=== PATIENT | female | born 1995 | race Caucasian/White ===

== ENCOUNTER 2018-10-09 14:46 | Inpatient (IN) | payer OTHER, SELFPAY ==
[2018-10-09] MEDS ORDERED: ACT CHARCOAL/SORB 50 GM/240ML ONE (15:14)
[2018-10-09] MEDS ORDERED: ACTIVATED CHARCOAL 25 GM/120 ML TUBE ONE ×2 (15:15→15:17)
[2018-10-09] MEDS ORDERED: PROMETHAZINE 25 MG/ML VIAL ONE (15:15)
[2018-10-09] MEDS ORDERED: NA CHLORIDE 0.9% 1,000 ML ONE ×4 (15:16→17:28)
[2018-10-09 15:23] LABS: Absolute Lymphocytes (CBC) 1.5 K/uL (0.7-4.9); Absolute Monocytes 0.4 K/uL (0.1-1.3); Absolute Neutrophil 4.1 K/uL (1.8-8.0); Basophils % 0.3 % (0-1.3); Eosinophils % 0.2 % (0-4.4); Hematocrit 38.9 % (36.0-45.0); Lymphocytes % 24.9 % (15.3-44.8); MCH 31.8 pg (27.0-35.0); MCV 89.4 fL (80-100); MPV 9.3 fL (7.6-11.3); RBC Red Blood Cell Count 4.35 M/uL (3.86-4.86)
[2018-10-09 15:25] LABS: Protime INR 1.1
[2018-10-09] MEDS ORDERED: MAGNESIUM SULFATE 1 gm IVPB 1 GM/100 ML BAG IV ONE ×2 (15:34→16:35)
[2018-10-09 15:58] LABS: ALT/SGPT 20 U/L (12-78); AST/SGOT 13 U/L (15-37); Albumin 3.8 g/dL (3.4-5.0); Alkaline Phosphatase 59 U/L (45-117); BUN Blood Urea Nitrogen 10 mg/dL (7-18); Bicarbonate 20 mmol/L (21-32); Bilirubin Direct 0.2 mg/dL (0-0.2); Bilirubin Total 0.6 mg/dL (0.2-1.0); Glucose Level 106 mg/dL (74-106); Magnesium 1.8 mg/dL (1.8-2.4); Protein, Total 7.4 g/dL (6.4-8.2); Sodium Level 138 mmol/L (136-145)
[2018-10-09 16:07] LABS: Barbiturates NEGATIVE (NEGATIVE); Benzodiazepines NEGATIVE (NEGATIVE); Cocaine NEGATIVE (NEGATIVE); METHAMPHETAM NEGATIVE (NEGATIVE); Methadone NEGATIVE (NEGATIVE); Opiates NEGATIVE (NEGATIVE); Phencyclidine NEGATIVE (NEGATIVE); THC Cannibis NEGATIVE (NEGATIVE)
[2018-10-09 16:08] LABS: Potassium 2.4 mmol/L (3.5-5.1)
[2018-10-09] MEDS ORDERED: KCL 20 MEQ/100 mL IVPB 20 MEQ/100 ML BAG IV ONE (16:33)
[2018-10-09] MEDS ORDERED: POTASSIUM 25 MEQ EFFERV TAB ONE (16:34)
[2018-10-09] MEDS ORDERED: CEFTRIAXONE/SWI 1gm 1 GM/10 ML SYR ONE (16:35)
--- NOTE | 2018-10-09 17:02 | ER ---
Nurse's Notes [facility] Name: Delaney Rogers Age: 23 yrs Sex: Female : 1995 Arrival Date: 10/09/2018 Time: 14:47 Bed External Waiting Private MD: None, None Diagnosis: Hypokalemia;Suicidal ideations;Suicide attempt Presentation: 10/09 14:54 Presenting complaint: Patient states: Reports taking unknown amount of Seroquel 200 mg aj around 1420 today in an attempt to kill herself. Patient reports that her boyfriend has been "saying mean things" and that she wants to . Patient is 8 weeks . Reports drowsiness, lips pale. Transition of care: patient was not received from another setting of care. Onset of symptoms was October 09, 2018. Risk Assessment: Do you want to hurt yourself or someone else? Patient reports no desire to harm self or others. Initial Sepsis Screen: Does the patient meet any 2 criteria? No. Patient's initial sepsis screen is negative. Does the patient have a suspected source of infection? No. Patient's initial sepsis screen is negative. Care prior to arrival: None. 14:54 Method Of Arrival: Ambulatory 14:54 Acuity: YANCY 1 aj Triage Assessment: 14:56 General: Appears in no apparent distress. comfortable, Behavior is drowsy. Pain: Denies aj pain. Neuro: Level of Consciousness is awake, obeys commands, Oriented to person, place, time, situation, Appropriate for age. Cardiovascular: Rhythm is sinus tachycardia. Respiratory: Airway is patent Respiratory effort is even, unlabored, Respiratory pattern is regular, symmetrical. Derm: Skin is intact, is healthy with good turgor, Skin is pink, warm \\T\\ dry. normal. Historical: - Allergies: 14:56 No Known Allergies; aj - Home Meds: 14:56 None [Active]; aj - PMHx: 14:56 None; aj - PSHx: 14:56 None; aj - Immunization history:: Adult Immunizations unknown. - Social history:: Smoking status: Patient/guardian denies using tobacco. - Ebola Screening: : Patient negative for fever greater than or equal to 101.5 degrees Fahrenheit, and additional compatible Ebola Virus Disease symptoms Patient denies exposure to infectious person Patient denies travel to an Ebola-affected area in the 21 days before illness onset No symptoms or risks identified at this time. Screenin:07 Abuse screen: Denies threats or abuse. Denies injuries from another. Nutritional hj screening: No deficits noted. Tuberculosis screening: No symptoms or risk factors identified. Fall Risk None identified. Assessment: 14:45 General: Appears ill, Behavior is cooperative, drowsy. Pain: Denies pain. Neuro: Level jl7 of Consciousness is awake, alert, obeys commands, Oriented to person, place, time, situation. Cardiovascular: Heart tones S1 S2 present Patient's skin is warm and dry. Respiratory: Airway is patent Respiratory effort is even, unlabored, Respiratory pattern is regular, symmetrical, Breath sounds are clear bilaterally. GI: Abdomen is flat, non-distended, Bowel sounds present X 4 quads. : No signs and/or symptoms were reported regarding the genitourinary system. EENT: No signs and/or symptoms were reported regarding the EENT system. Derm: Skin is dry, Skin is pale, Skin temperature is cool. Musculoskeletal: No signs and/or symptoms reported regarding the musculoskeletal system. 15:00 Reassessment: Delaney at [facility] recommends tox workup, 12 lead ekg, hcg hb level, repeat ASA and ACET level at 4 hours post ingestion. Case #[id number]. 15:09 Reassessment: assisted YARA Forbes with gastric lavage, Mendez CORTES at bedside, milky white iw emesis with pill fragments and whole pills noted in bag. 16:15 Reassessment: bear missygger applied. jl7 17:20 Reassessment: Dr. Navarro at bedside. Reassessment:. Neuro: Level of Consciousness is jl7 lethargic, Oriented to person, place, time, situation. Cardiovascular: Rhythm is sinus tachycardia. Respiratory: Airway is patent Respiratory effort is even, unlabored, shallow, Respiratory pattern is regular, symmetrical. : Earl in place to gravity drainage. 18:04 Reassessment: Pt's step-mother at bedside. jl7 18:54 Reassessment: Pt's father remains at bedside. jl7 19:10 General: Appears in no apparent distress. uncomfortable, Behavior is cooperative, tl2 drowsy. Pain: Denies pain. Neuro: Level of Consciousness is obeys commands, lethargic, Oriented to person, place, situation, Speech is slurred. Cardiovascular: Denies chest pain, Rhythm is sinus tachycardia. Respiratory: Airway is patent Respiratory effort is even, unlabored, Respiratory pattern is regular, symmetrical. GI: No signs and/or symptoms were reported involving the gastrointestinal system. : No signs and/or symptoms were reported regarding the genitourinary system. Derm: Skin is pale. 20:30 Reassessment: Patient appears in no apparent distress at this time. No changes from tl2 previously documented assessment. Awaiting transport to ICU. Overdose: 16:07 Patient took Approximately 77 tablets of 200 mg quetiapine, total 15,400 mg. Overdose jl7 occurred 30 minutes to 1 hour ago. Earl cath inserted, using sterile technique, 16 Fr., by tx, balloon inflated, to gravity drainage, urine specimen collected. NGT: inserted 12 Fr. via left nare. verified placement of air over stomach, verified return of gastric contents, flushed with 50 ml NS Patient tolerated poorly. Vital Signs: 14:56 BP 140 / 44; Pulse 130; Resp 16; Temp 97.9; Pulse Ox 100% ; Weight 81.65 kg; Height 5 hb ft. 10 in. (177.80 cm); 15:15 BP 108 / 64; Pulse 133; Resp 14 S; Pulse Ox 97% on R/A; jl7 15:30 BP 114 / 52; Pulse 122; Resp 15 S; Pulse Ox 98% on R/A; jl7 15:45 BP 108 / 49; Pulse 115; Resp 13 S; Temp 93.7(C); Pulse Ox 98% on R/A; jl7 16:01 BP 109 / 49; Pulse 114; Resp 13 S; Temp 95.1(C); Pulse Ox 98% on R/A; jl7 16:15 BP 107 / 58; Pulse 127; Resp 11 S; Temp 94.5(R); Pulse Ox 96% on R/A; jl7 16:45 BP 99 / 46; Pulse 141; Resp 20 S; Temp 95.0(C); Pulse Ox 96% on R/A; jl7 17:00 BP 94 / 48; Pulse 119; Resp 12; Temp 95.2(C); Pulse Ox 96% on R/A; jl7 17:45 BP 108 / 51; Pulse 116; Resp 14 S; Temp 96.1(C); Pulse Ox 97% on R/A; jl7 18:15 BP 102 / 49; Pulse 118; Resp 11 S; Temp 97(C); Pulse Ox 98% on R/A; jl7 18:45 BP 105 / 55; Pulse 125; Resp 16 S; Temp 98.2(C); Pulse Ox 97% on R/A; jl7 19:31 BP 95 / 50; Pulse 110; Resp 17; Temp 99.1(C); Pulse Ox 97% ; tl2 20:10 BP 100 / 49; Pulse 115; Resp 15; Pulse Ox 99% on R/A; tl2 14:56 Body Mass Index 25.83 (81.65 kg, 177.80 cm) hb [place] Coma Score: 14:45 Eye Response: spontaneous(4). Verbal Response: oriented(5). Motor Response: obeys jl7 commands(6). Total: 15. 15:15 Eye Response: to voice(3). Verbal Response: oriented(5). Motor Response: obeys jl7 commands(6). Total: 14. 15:45 Eye Response: to pain(2). Verbal Response: confused(4). Motor Response: localizes jl7 pain(5). Total: 11. 16:15 Eye Response: to pain(2). Verbal Response: confused(4). Motor Response: localizes jl7 pain(5). Total: 11. 16:45 Eye Response: to pain(2). Verbal Response: confused(4). Motor Response: localizes jl7 pain(5). Total: 11. 17:15 Eye Response: to pain(2). Verbal Response: confused(4). Motor Response: localizes jl7 pain(5). Total: 11. 17:45 Eye Response: to pain(2). Verbal Response: confused(4). Motor Response: localizes jl7 pain(5). Total: 11. 18:15 Eye Response: to pain(2). Verbal Response: confused(4). Motor Response: localizes jl7 pain(5). Total: 11. 18:45 Eye Response: to pain(2). Verbal Response: confused(4). Motor Response: localizes jl7 pain(5). Total: 11. 19:31 Eye Response: to voice(3). Verbal Response: inappropriate words(3). Motor Response: tl2 localizes pain(5). Total: 11. 20:10 Eye Response: to voice(3). Verbal Response: inappropriate words(3). Motor Response: tl2 localizes pain(5). Total: 11. ED Course: 14:47 Patient arrived in ED. mr 14:48 None, None is Private Physician. mr 14:56 Triage completed. aj 14:56 Arm band placed on left wrist. Patient placed in an exam room. aj 14:58 Patient has correct armband on for positive identification. Placed in gown. Bed in low hj position. Call light in reach. Side rails up X2. Seizure precautions initiated. 14:58 Initial lab(s) drawn, by ED staff, sent to lab. Inserted saline lock: 18 gauge in right hj antecubital area, using aseptic technique. Blood collected. 14:58 Inserted saline lock: 20 gauge in left antecubital area, using aseptic technique. hj 15:00 Safety checks: Items removed: yes. Door open/sign placed on door: yes. Family/friend ap present: yes. Sitter present: Yes. 15:00 NGT: inserted 12 Fr. via left nare. other YARA Forbes\\E\\ verified placement of air over jl7 stomach, flushed with 50 ml tap water Patient tolerated well. 15:05 Mendez Richmond PA is PHCP. jr8 15:05 Zoran Molina MD is Attending Physician. jr8 15:15 Safety checks: Items removed: yes. Door open/sign placed on door: yes. Family/friend ap present: no. Sitter present: Yes. 15:30 Safety checks: Items removed: yes. Door open/sign placed on door: yes. Family/friend ap present: no. Sitter present: Yes. 15:44 Earl cath inserted, using sterile technique, 16 Fr., by ED staff, balloon inflated, to hj gravity drainage, other YARA Forbes returned Patient tolerated well. 15:45 Safety checks: Items removed: yes. Door open/sign placed on door: yes. Family/friend ap present: no. Sitter present: Yes. 16:00 Andrei Pérez RN is Primary Nurse. jl7 16:00 Safety checks: Items removed: yes. Door open/sign placed on door: yes. Family/friend ap present: no. Sitter present: Yes. 16:15 Safety checks: Items removed: yes. Door open/sign placed on door: yes. Family/friend ap present: no. Sitter present: Yes. 16:30 Safety checks: Items removed: yes. Door open/sign placed on door: yes. Family/friend ap present: no. Sitter present: Yes. 16:45 Safety checks: Items removed: yes. Door open/sign placed on door: yes. Family/friend ap present: no. Sitter present: Yes. 17:00 Safety checks: Items removed: yes. Door open/sign placed on door: yes. Family/friend ap present: no. Sitter present: Yes. 17:01 Kati Navarro MD is Hospitalizing Provider. jr8 17:15 Safety checks: Items removed: yes. Door open/sign placed on door: yes. Family/friend ap present: no. Sitter present: Yes. 17:30 Ultrasound completed. Patient tolerated well. Note: mendez cortes in room during exam. sg3 17:30 Safety checks: Items removed: yes. Door open/sign placed on door: yes. Family/friend ap present: no. Sitter present: Yes. 17:45 Safety checks: Items removed: yes. Door open/sign placed on door: yes. Family/friend ap present: no. Sitter present: Yes. 18:00 Safety checks: Items removed: yes. Door open/sign placed on door: yes. Family/friend ap present: yes. Family/friends encouraged to stay with patient. Sitter present: Yes. 18:15 Safety checks: Items removed: yes. Door open/sign placed on door: yes. Family/friend ap present: yes. Family/friends encouraged to stay with patient. Sitter present: Yes. 18:30 Safety checks: Items removed: yes. Door open/sign placed on door: yes. Family/friend ap present: yes. Family/friends encouraged to stay with patient. Sitter present: Yes. 18:45 Safety checks: Items removed: yes. Door open/sign placed on door: yes. Family/friend ap present: yes. Family/friends encouraged to stay with patient. Sitter present: Yes. 19:00 Safety checks: Items removed: yes. Door open/sign placed on door: yes. Family/friend ap present: yes. Sitter present: Yes. 19:09 Primary Nurse role handed off by Andrei Pérez RN [facility] 19:11 Safety checks: Items removed: yes. Door open/sign placed on door: yes. Family/friend cb2 present: yes. Sitter present: Yes. 19:15 Safety checks: Items removed: yes. Safety checks: Door open/sign placed on door: yes. cb2 Family/friend present: yes. Sitter present: Yes. 19:30 Safety checks: Items removed: yes. Door open/sign placed on door: yes. Family/friend cb2 present: yes. Sitter present: Yes. 19:45 Safety checks: Items removed: yes. Door open/sign placed on door: yes. Family/friend cb2 present: yes. Sitter present: Yes. 20:00 Safety checks: Items removed: yes. Door open/sign placed on door: yes. Family/friend cb2 present: yes. Family/friends encouraged to stay with patient. Sitter present: Yes. 20:15 Safety checks: Items removed: yes. Door open/sign placed on door: yes. Family/friend cb2 present: yes. Family/friends encouraged to stay with patient. Sitter present: Yes. 21:30 No provider procedures requiring assistance completed. Patient admitted, IV remains in tl2 place. Administered Medications: 15:08 Drug: NS 0.9% 1000 ml Route: IV; Rate: 1000 ml; Site: left antecubital; 16:15 Follow up: IV Status: Completed infusion [facility] 15:17 Drug: Charcoal Suspension 80 grams Route: PO; 16:00 Follow up: Response: No adverse reaction [facility] 15:23 Drug: NS 0.9% 1000 ml Route: IV; Rate: 125 ml/hr; Site: left antecubital; hj 16:45 Follow up: Rate change bolus jl7 15:30 Drug: Magnesium Sulfate 1 grams Route: IVPB; Infused Over: 1 hrs; Site: right antecubital; 16:30 Follow up: Response: No adverse reaction; IV Status: Completed infusion [facility] 16:35 Drug: Potassium Chloride 20 mEq Route: IV; Rate: calculated rate; Site: right [facility] antecubital; 17:25 Drug: NS 0.9% 1000 ml Route: IV; Rate: 200 ml/hr; Site: right antecubital; jl7 Outcome: 17:02 Decision to Hospitalize by Provider. jr8 21:10 Patient left the ED. tl2 21:30 Admitted to ICU accompanied by nurse, family with patient, via stretcher, room 1, with tl2 chart, Report called to YARA Vides 21:30 Condition: stable 21:30 Instructed on the need for admit. Signatures: Nae Howell, RN YARA lerma AhnKerri, April, RN RN iw Mendez Richmond PA PA jr8 Kris Chavez, RN Iraida Richey Heather, Bridget Fountain RN, RN RN tl2 Beto, YARA Forbes RN jl7 Rufus Andrade Sarah 3 Corrections: (The following items were deleted from the chart) 15:12 15:09 Reassessment: assisted YARA Barney with gastric lavage, Mendez CORTES at bedside, milky iw white emesis with pill fragments and whole pills noted in bag iw 16:07 15:00 NGT: inserted 16 Fr. via left nare. other YARA Forbes\\E\\ verified placement of air jl7 over stomach, flushed with 50 ml tap water Patient tolerated well. hj 16:23 15:45 BP 108 / 49; Pulse 115bpm; Resp 13bpm; Spontaneous; Pulse Ox 98% RA; jl7 jl7 16:23 16:01 BP 109 / 49; Pulse 114bpm; Resp 13bpm; Spontaneous; Pulse Ox 98% RA; jl7 jl7 17:25 17:24 Rate change bolus jl7 jl7
--- NOTE | 2018-10-09 17:03 | EDPHYS ---
Physician Documentation [facility] Name: Delaney Rogers Age: 23 yrs Sex: Female : 1995 Arrival Date: 10/09/2018 Time: 14:47 Bed External Waiting Private MD: None, None ED Physician Zoran Molina HPI: 10/09 16:32 This 23 yrs old Female presents to ER via Ambulatory with complaints of jr8 Overdose, Suicidal Ideation, 8 Wks . 16:32 The patient presents to the emergency department after a known overdose, that was jr8 intentional. Context: Method: the patient has a confirmed or suspected ingestion, Seroquel. Associated signs and symptoms: Pertinent positives: sleepiness . Severity of symptoms: At their worst the symptoms were moderate in the emergency department the symptoms are unchanged. The patient has not experienced similar symptoms in the past. The patient has not recently seen a physician. Patient stated that her father has been saying mean things to her. Stated that she cannot take it anymore. 8 weeks . Took fathers Seroquel. Dosage is 200mg. Took approximately 77 pills. Mother of patient stated that she moved into there house recently to help her. Stated that she has been angry and upset because they have been instating rules and does not want to follow them . Historical: - Allergies: 14:56 No Known Allergies; aj - Home Meds: 14:56 None [Active]; aj - PMHx: 14:56 None; aj - PSHx: 14:56 None; aj - Immunization history:: Adult Immunizations unknown. - Social history:: Smoking status: Patient/guardian denies using tobacco. - Ebola Screening: : Patient negative for fever greater than or equal to 101.5 degrees Fahrenheit, and additional compatible Ebola Virus Disease symptoms Patient denies exposure to infectious person Patient denies travel to an Ebola-affected area in the 21 days before illness onset No symptoms or risks identified at this time. ROS: 16:32 Eyes: Negative for injury, pain, redness, and discharge, ENT: Negative for injury, jr8 pain, and discharge, Neck: Negative for injury, pain, and swelling, Cardiovascular: Negative for chest pain, palpitations, and edema, Respiratory: Negative for shortness of breath, cough, wheezing, and pleuritic chest pain, Abdomen/GI: Negative for abdominal pain, nausea, vomiting, diarrhea, and constipation, Back: Negative for injury and pain, MS/Extremity: Negative for injury and deformity, Skin: Negative for injury, rash, and discoloration, Neuro: Negative for headache, weakness, numbness, tingling, and seizure. 16:32 Psych: Positive for anxiety, depression, suicide gesture, suicidal ideation. Exam: 16:32 Eyes: Pupils equal round and reactive to light, extra-ocular motions intact. Lids and jr8 lashes normal. Conjunctiva and sclera are non-icteric and not injected. Cornea within normal limits. Periorbital areas with no swelling, redness, or edema. ENT: Nares patent. No nasal discharge, no septal abnormalities noted. Tympanic membranes are normal and external auditory canals are clear. Oropharynx with no redness, swelling, or masses, exudates, or evidence of obstruction, uvula midline. Mucous membranes moist. Neck: Trachea midline, no thyromegaly or masses palpated, and no cervical lymphadenopathy. Supple, full range of motion without nuchal rigidity, or vertebral point tenderness. No Meningismus. Respiratory: Lungs have equal breath sounds bilaterally, clear to auscultation and percussion. No rales, rhonchi or wheezes noted. No increased work of breathing, no retractions or nasal flaring. Abdomen/GI: Soft, non-tender, with normal bowel sounds. No distension or tympany. No guarding or rebound. No evidence of tenderness throughout. Back: No spinal tenderness. No costovertebral tenderness. Full range of motion. Skin: Warm, dry with normal turgor. Normal color with no rashes, no lesions, and no evidence of cellulitis. MS/ Extremity: Pulses equal, no cyanosis. Neurovascular intact. Full, normal range of motion. Neuro: Awake and alert, GCS 15, oriented to person, place, time, and situation. Cranial nerves II-XII grossly intact. Motor strength 5/5 in all extremities. Sensory grossly intact. Cerebellar exam normal. Normal gait. 16:32 Cardiovascular: Rate: tachycardic, Rhythm: regular, Pulses: Pulses are 2+ in right radial artery and left radial artery. Heart sounds: normal, normal S1and S2, no S3 or S4, no murmur, no rub, no gallop, Edema: is not appreciated. 16:32 Psych: Behavior/mood is cooperative, suicidal, Affect is calm, Oriented to person, place, time, Patient having thoughts of suicide. Plan for suicide is see hpi Judgement / Insight is impaired. Memory is normal. Delusions/hallucinations are not present. Vital Signs: 14:56 BP 140 / 44; Pulse 130; Resp 16; Temp 97.9; Pulse Ox 100% ; Weight 81.65 kg; Height 5 hb ft. 10 in. (177.80 cm); 15:15 BP 108 / 64; Pulse 133; Resp 14 S; Pulse Ox 97% on R/A; jl7 15:30 BP 114 / 52; Pulse 122; Resp 15 S; Pulse Ox 98% on R/A; jl7 15:45 BP 108 / 49; Pulse 115; Resp 13 S; Temp 93.7(C); Pulse Ox 98% on R/A; jl7 16:01 BP 109 / 49; Pulse 114; Resp 13 S; Temp 95.1(C); Pulse Ox 98% on R/A; jl7 16:15 BP 107 / 58; Pulse 127; Resp 11 S; Temp 94.5(R); Pulse Ox 96% on R/A; jl7 16:45 BP 99 / 46; Pulse 141; Resp 20 S; Temp 95.0(C); Pulse Ox 96% on R/A; jl7 17:00 BP 94 / 48; Pulse 119; Resp 12; Temp 95.2(C); Pulse Ox 96% on R/A; jl7 17:45 BP 108 / 51; Pulse 116; Resp 14 S; Temp 96.1(C); Pulse Ox 97% on R/A; jl7 18:15 BP 102 / 49; Pulse 118; Resp 11 S; Temp 97(C); Pulse Ox 98% on R/A; jl7 18:45 BP 105 / 55; Pulse 125; Resp 16 S; Temp 98.2(C); Pulse Ox 97% on R/A; jl7 19:31 BP 95 / 50; Pulse 110; Resp 17; Temp 99.1(C); Pulse Ox 97% ; tl2 20:10 BP 100 / 49; Pulse 115; Resp 15; Pulse Ox 99% on R/A; tl2 14:56 Body Mass Index 25.83 (81.65 kg, 177.80 cm) hb Shaquille Coma Score: 14:45 Eye Response: spontaneous(4). Verbal Response: oriented(5). Motor Response: obeys jl7 commands(6). Total: 15. 15:15 Eye Response: to voice(3). Verbal Response: oriented(5). Motor Response: obeys jl7 commands(6). Total: 14. 15:45 Eye Response: to pain(2). Verbal Response: confused(4). Motor Response: localizes jl7 pain(5). Total: 11. 16:15 Eye Response: to pain(2). Verbal Response: confused(4). Motor Response: localizes jl7 pain(5). Total: 11. 16:45 Eye Response: to pain(2). Verbal Response: confused(4). Motor Response: localizes jl7 pain(5). Total: 11. 17:15 Eye Response: to pain(2). Verbal Response: confused(4). Motor Response: localizes jl7 pain(5). Total: 11. 17:45 Eye Response: to pain(2). Verbal Response: confused(4). Motor Response: localizes jl7 pain(5). Total: 11. 18:15 Eye Response: to pain(2). Verbal Response: confused(4). Motor Response: localizes jl7 pain(5). Total: 11. 18:45 Eye Response: to pain(2). Verbal Response: confused(4). Motor Response: localizes jl7 pain(5). Total: 11. 19:31 Eye Response: to voice(3). Verbal Response: inappropriate words(3). Motor Response: tl2 localizes pain(5). Total: 11. 20:10 Eye Response: to voice(3). Verbal Response: inappropriate words(3). Motor Response: tl2 localizes pain(5). Total: 11. MDM: 15:05 Patient medically screened. [facility] 16:54 Data reviewed: vital signs, nurses notes, lab test result(s), EKG. Data interpreted: jr8 Pulse oximetry: on room air is 96 %. Interpretation: normal. Counseling: I had a detailed discussion with the patient and/or guardian regarding: the historical points, exam findings, and any diagnostic results supporting the discharge/admit diagnosis, lab results, the need for further work-up and treatment in the hospital. Physician consultation: Kati Navarro MD was called at 17:01, was contacted at 17:01, regarding admission, to the ICU, consult, patient's condition, and will see patient in ED. ED course: Consulted Dr. Allen about the 8 week . Nothing at this point in time needs to be done from an obstetrics point of view other then follow up with [employer] learning support teacher if patient does not miscarry . 18:49 ED course: pt seen and examined, somnolent but awakens and answers questions, VS gs stabilizing continue fluids and monitor for sz and arrythmias in ICU. 10/09 14:59 Order name: Acetaminophen 10/09 14:59 Order name: Basic Metabolic Panel; Complete Time: 16:09 10/09 14:59 Order name: CBC with Diff; Complete Time: 15:42 10/09 14:59 Order name: ETOH Level; Complete Time: 15:42 10/09 14:59 Order name: Hepatic Function; Complete Time: 16: 10/09 14:59 Order name: PT-INR; Complete Time: 15:42 10/09 14:59 Order name: Ptt, Activated; Complete Time: 15:42 10/09 14:59 Order name: Salicylate; Complete Time: 15:42 10/09 14:59 Order name: Urine Drug Screen; Complete Time: 16: 10/09 14:59 Order name: Magnesium; Complete Time: 16: 10/09 14:59 Order name: Acetaminophen Level; Complete Time: 16:09 [facility] 10/09 15:56 Order name: Urine Dipstick--Ancillary (enter results) 10/09 15:56 Order name: Urine --Ancillary (enter results) 10/09 17:21 Order name: US Transvaginal Ob [facility] 10/09 14:59 Order name: EKG; Complete Time: 15:00 10/09 14:59 Order name: EKG - Nurse/Tech; Complete Time: 15:17 10/09 14:59 Order name: IV Saline Lock; Complete Time: 15:17 10/09 14:59 Order name: Labs collected and sent; Complete Time: 15:18 10/09 15:07 Order name: Gastric lavage; Complete Time: 15: [facility] 10/09 19:56 Order name: US EDTX Administered Medications: 15:08 Drug: NS 0.9% 1000 ml Route: IV; Rate: 1000 ml; Site: left antecubital; 16:15 Follow up: IV Status: Completed infusion jl7 15:17 Drug: Charcoal Suspension 80 grams Route: PO; 16:00 Follow up: Response: No adverse reaction jl7 15:23 Drug: NS 0.9% 1000 ml Route: IV; Rate: 125 ml/hr; Site: left antecubital; hj 16:45 Follow up: Rate change bolus jl7 15:30 Drug: Magnesium Sulfate 1 grams Route: IVPB; Infused Over: 1 hrs; Site: right hj antecubital; 16:30 Follow up: Response: No adverse reaction; IV Status: Completed infusion jl7 16:35 Drug: Potassium Chloride 20 mEq Route: IV; Rate: calculated rate; Site: right jl7 antecubital; 17:25 Drug: NS 0.9% 1000 ml Route: IV; Rate: 200 ml/hr; Site: right antecubital; 7 Disposition: 10/09/18 17:02 Hospitalization ordered by Kati Navarro for Inpatient Admission. Preliminary diagnosis are Hypokalemia, Suicidal ideations, Suicide attempt. - Bed requested for Intensive Care Unit. - Status is Inpatient Admission. tl2 - Condition is Fair. - Problem is new. - Symptoms have improved. UTI on Admission? No Addendum: 10/17/2018 13:01 Co-signature as Attending Physician, Zoran Molina MD. g s Signatures: Dispatcher [employer] EDTX Nae Howell RN RN aj Solis, Maria ms Mendez [place], NEDA PA jr8 Kris Chavez RN RN hj Knox, Taylor, RN RN tl2 Andrei Pérez RN RN jl7 Zoran Molina MD MD Corrections: (The following items were deleted from the chart) 10/09 19:14 17:02 Hospitalization Ordered by Kati Navarro MD for Inpatient Admission. Preliminary ms diagnosis is Hypokalemia; Suicidal ideations; Suicide attempt. Bed requested for Intensive Care Unit. Status is Inpatient Admission. Condition is Fair. Problem is new. Symptoms have improved. UTI on Admission? No. jr8 21:10 19:14 10/09/2018 17:02 Hospitalization Ordered by Kati Navarro MD for Inpatient tl2 Admission. Preliminary diagnosis is Hypokalemia; Suicidal ideations; Suicide attempt. Bed requested for Intensive Care Unit. Status is Inpatient Admission. Condition is Fair. Problem is new. Symptoms have improved. UTI on Admission? No. ms
--- NOTE | 2018-10-09 19:55 | RAD REPORT ---
EXAM DESCRIPTION: US - OB Limited - 10/09/2018 6:28 pm CLINICAL HISTORY: , unknown abdominal injury COMPARISON: None. TECHNIQUE: Transabdominal sonography performed. FINDINGS: Single intrauterine gestation is identifiable. Normal-appearing gestational sac is seen. S ac measurements and crown-rump length corresponds to a 13 week 4 day age. Calculated MONTY is 9. Heart rate is 151 BPM. No hematoma or mass within the uterine cavity. Neither ovary was identifiable. No adnexal mass. No free fluid in the cul de sac. IMPRESSION: Single 13 week 4 day IUP with normal heart rate.
[2018-10-09 21:25] LABS: Urine Blood NEGATIVE (NEG); Urine Glucose NEGATIVE (NEG); Urine Protein 2+ (NEG); Urine Specific Gravity >1.030 (1.005-1.030)
--- NOTE | 2018-10-09 23:24 | P.HP ---
Patient History Date of Service: 10/10/18 Reason for admission: Suicide attempt History of Present Illness: This is a 23-year-old female with no past medical history admitted for suicide attempt. Per patient, she was upset that her father had been putting her down all night and all day, calling her" worthless" "useless" and just making her feel well in general. She took her father's Seroquel pills, about 77 of them, per patient. She is also approximately 8 weeks , and she does know she is . In the ER, her stomach responded found to have pill fragments. She was given 3 L of IV fluids and other supportive care. She took a at the time of my exam, patient was very sleepy, unarousable and unable to give me a history. Allergies No Known Drug Allergies Allergy (Verified 10/09/18 21:36) Unknown Home Medications: NK [No Home Meds] 10/09/18 - Past Medical/Surgical History Has patient received pneumonia vaccine in the past: No Diabetic: No -: 2014 - Family History Mother Notes: denies any medical history Father -: Heart disease, Hypertension, Diabetes - Social History Smoking Status: Former smoker Alcohol use: Yes CD- Drugs: No Caffeine use: Yes Place of Residence: Home Review of Systems is unable to be obtained Physical Examination - Vital Signs Temperature: 99.1 F Blood Pressure: 94/44 Pulse: 103 Respirations: 17 Pulse Ox (%): 100 - Physical Exam General: Confused, Unresponsive Neck: JVD not distended Cardiovascular: Normal S1 S2, Irregular heart rate/rhythm Gastrointestinal: Normal bowel sounds Musculoskeletal: No clubbing, No swelling Integumentary: No rashes, No breakdown - Studies Laboratory Data (last 24 hrs) 10/09/18 15:09: PT 13.0 H, INR 1.10, APTT 26.9 10/09/18 15:09: WBC 6.0, Hgb 13.8, Hct 38.9, Plt Count 163 10/09/18 15:09: Sodium 138, Potassium 2.4 L*, BUN 10, Creatinine 0.60, Glucose 106, Magnesium 1.8, Total Bilirubin 0.6, AST 13 L, ALT 20, Alkaline Phosphatase 59 Assessment and Plan - Plan Suicide attempt ICU, 1-on-1 monitoring Symptomatic care Will need MHMR eval once medically stable for likely inpatient psych eval Repeat EKG tomorrow as initial EKG with QT prolongation. She was already given 1mg Mag in the ER. If QTC continues to be prolonged tomorrow, will give another Mag. Currently Transvaginal ultrasound performed No need for OB consult at this time unless patient with vaginal bleeding, abdominal pain DVT prophylaxis: Lovenox Diet: NPO disposition: Admit to ICU with 1 on 1 monitoring. Symptomatic treatment. I do not think she will be a safe discharge home after medically being stable. She may need inpatient psych eval. - Advance Directives Does patient have a Living Will: No Does patient have a Durable POA for Healthcare: No Physician Review: Patient Assessed, Agree with Above Assessment and Plan Time Spent Managing Pts Care (In Minutes): 55
[2018-10-09] MEDS ORDERED: KCL 20 MEQ/100 mL IVPB 20 MEQ/100 ML BAG IV SCH (23:45)
[2018-10-10] MEDS: KCL 20 MEQ/100 mL IVPB 20 MEQ/100 ML BAG IV SCH ×2 (00:25→02:04)
[2018-10-10] MEDS ORDERED: NA CHLORIDE 0.9% 250 ML ONE (00:31)
[2018-10-10 05:32] LABS: Absolute Monocytes 0.6 K/uL (0.1-1.3); Absolute Neutrophil 8.6 K/uL (1.8-8.0); Basophils % 0.1 % (0-1.3); Eosinophils % 0.1 % (0-4.4); Hematocrit 34.8 % (36.0-45.0); Lymphocytes % 10.2 % (15.3-44.8); MCH 32.1 pg (27.0-35.0); MCV 88.8 fL (80-100); MPV 9.2 fL (7.6-11.3); Monocytes % 5.9 % (3.3-12.3); RBC Red Blood Cell Count 3.91 M/uL (3.86-4.86)
[2018-10-10 05:57] LABS: ALT/SGPT 17 U/L (12-78); AST/SGOT 11 U/L (15-37); Alkaline Phosphatase 55 U/L (45-117); BUN Blood Urea Nitrogen 4 mg/dL (7-18); Bicarbonate 21 mmol/L (21-32); Bilirubin Total 0.7 mg/dL (0.2-1.0); Glucose Level 101 mg/dL (74-106); Magnesium 1.9 mg/dL (1.8-2.4); Potassium 3.6 mmol/L (3.5-5.1); Protein, Total 6.2 g/dL (6.4-8.2); Sodium Level 139 mmol/L (136-145)
[2018-10-10] MEDS ORDERED: NA CHLORIDE 0.9% 100 ML ONE (06:20)
[2018-10-10 06:25] LABS: Phosphorus 2.8 mg/dL (2.5-4.9)
[2018-10-10] MEDS ORDERED: KCL 20 MEQ/100 mL IVPB 20 MEQ/100 ML BAG IV SCH (07:00)
--- NOTE | 2018-10-10 07:03 | EKG ---
Test Date: 2018-10-09 Test Time: 14:57:49 Installation Tech: ROSAS MEASUREMENT RESULTS: Intervals: Rate: 126 NC: 122 QRSD: 72 QT: 420 QTc: 608 [place]: P: 78 NC: 122 QRS: 80 T: 66 INTERPRETIVE STATEMENTS: Sinus tachycardia Nonspecific ST and T wave abnormality Abnormal ECG No previous ECG available for comparison Electronically Signed On 10-10-18 07:02:35 [employer]UT[employer] CONSULTANT by Ang Ruiz
--- NOTE | 2018-10-10 14:03 | EKG ---
Test Date: 2018-10-10 Test Time: 09:37:20 Directory Clerk: SURESH MEASUREMENT RESULTS: Intervals: Rate: 92 NE: 164 QRSD: 72 QT: 372 QTc: 460 [place]: P: 53 NE: 164 QRS: 61 T: 34 INTERPRETIVE STATEMENTS: Normal sinus rhythm Normal ECG Compared to ECG 10/09/2018 14:57:49 Sinus tachycardia no longer present ST (T wave) deviation no longer present Electronically Signed On 10-10-18 14:01:29 ENVIRONMENTAL COMPLIANCE INSPECTOR by Kyle Adam
--- NOTE | 2018-10-10 16:56 | P.PN ---
Subjective Date of Service: 10/10/18 Chief Complaint: Suicide attempt Patient seen and examined at bedside. Mother at bedside. Case has with nursing staff. Patient awake and alert, oriented x3. Back to baseline. Denies any current complaints. Review of Systems As noted Physical Examination - Vital Signs Temperature: 99.1 F Blood Pressure: 94/44 Pulse: 103 Respirations: 17 Pulse Ox (%): 100 - Physical Exam General: Alert, In no apparent distress, Oriented x3 HEENT: Atraumatic, PERRLA, EOMI Neck: Supple, JVD not distended Respiratory: Clear to auscultation bilaterally, Normal air movement Cardiovascular: Regular rate/rhythm, Normal S1 S2 Gastrointestinal: Normal bowel sounds, No tenderness Musculoskeletal: No tenderness Integumentary: No rashes Neurological: Normal speech, Normal tone, Normal affect Assessment And Plan - Plan Suicide attempt ICU, 1-on-1 monitoring Symptomatic care MR eval done today. Repeat EKG with QTC less than 500. Currently , 14 weeks Transvaginal ultrasound performed No need for OB consult at this time unless patient with vaginal bleeding, abdominal pain DVT prophylaxis: Lovenox Diet: Regular disposition: Monitor and ICU with 1 on 1 monitoring. Medically cleared for discharge, pending transfer to inpatient psych facility. Physician Review: Patient Assessed, Agree with Above Assessment and Plan
[2018-10-10 17:08] VITALS: BMI 25.1
[2018-10-11 00:20] VITALS: O2SAT 99
[2018-10-11 05:15] LABS: Absolute Lymphocytes (CBC) 1.3 K/uL (0.7-4.9); Absolute Monocytes 0.5 K/uL (0.1-1.3); Absolute Neutrophil 11.1 K/uL (1.8-8.0); Basophils % 0.3 % (0-1.3); Eosinophils % 0.2 % (0-4.4); Hematocrit 39.5 % (36.0-45.0); Lymphocytes % 9.7 % (15.3-44.8); MCH 31.6 pg (27.0-35.0); MCV 89.3 fL (80-100); MPV 9.5 fL (7.6-11.3); Monocytes % 4.2 % (3.3-12.3); RBC Red Blood Cell Count 4.42 M/uL (3.86-4.86)
[2018-10-11 05:34] VITALS: TEMP 98.7
[2018-10-11 05:43] LABS: ALT/SGPT 18 U/L (12-78); AST/SGOT 13 U/L (15-37); Albumin 3.8 g/dL (3.4-5.0); Alkaline Phosphatase 68 U/L (45-117); BUN Blood Urea Nitrogen 5 mg/dL (7-18); Bicarbonate 23 mmol/L (21-32); Bilirubin Total 0.6 mg/dL (0.2-1.0); Glucose Level 99 mg/dL (74-106); Potassium 3.3 mmol/L (3.5-5.1); Protein, Total 7.8 g/dL (6.4-8.2); Sodium Level 138 mmol/L (136-145)
[2018-10-11 05:45] LABS: Platelet Estimate ADEQ; Platelets, Giant NOTED; Urine White Blood Cell Casts OK
[2018-10-11 05:46] LABS: Blood Morphology Comment NOT SEEN (NOT SEEN)
[2018-10-11] MEDS ORDERED: POTASSIUM CL SA 10 MEQ TAB PO ONE ×2 (05:49→13:39)
[2018-10-11 11:36] LABS: Urine Appearance CLOUDY; Urine Bilirubin NEGATIVE (NEG); Urine Blood NEGATIVE (NEG); Urine Color YELLOW; Urine Glucose NEGATIVE (NEG); Urine Protein NEGATIVE (NEG); Urine Urobilinogen 0.2 mg/dL (0.2-1.0); Urine pH 6.5 (5.0-7.0)
[2018-10-11 11:53] LABS: Urine Bacteria 20-50 /HPF (<20); Urine Culture Reflex Order REFLEXED; Urine RBC <5 /HPF (NONE SEEN)
[2018-10-11] MEDS ORDERED: AMOXICILLIN TRIHYDR 250 MG CAP PO SCH (14:00)
[2018-10-11 18:44] VITALS: BP 113/64
--- NOTE | 2018-10-11 20:04 | DS ---
Date of Discharge: 10/11/2018 Discharge Diagnoses: 1. Suicide attempt. 2. Current , 14 weeks. 3. Hypokalemia. 4. Acute cystitis without hematuria. Hospital Course: The patient is a 23-year-old female, who was admitted to the hospital for suicide attempt. The patient had taken her father's Seroquel about 77 pills. However, the patient was brought in immediately afterwards. Lavage was done and fragments of the pills were found. The patient did have a prolonged QTc, however, the QTc did normalize on repeat EKG. The patient was continued symptomatic treatment. The patient did have a transvaginal ultrasound done, which showed a single gestation with normal heartbeat. The patient was found to have UTI and was continued on amoxicillin which she was taking prior to hospitalization. The patient otherwise did well. Her potassium level was normalized. Her UDS did not show any toxins in her urine. The patient was seen by [facility], who did not recommend inpatient admission ; however, given the patient's condition, status, and suicide attempt , the patient was referred to a TPC and was accepted. The patient was then transferred to [facility]. Condition: Stable. Activity: As tolerated. Medications: As per medication reconciliation list with a short course of amoxicillin for UTI. Followup: Follow up with PCP in 1-2 weeks. Follow up with psychiatrist on transfer. Return to ER for worsening condition. Physical Examination: General: Awake, alert, oriented, no acute distress. CV: S1, S2. No murmurs. Respiratory: Moving air well bilaterally. Abdomen: Soft, nontender, nondistended. Positive bowel sounds. Extremities: No clubbing, cyanosis, or edema. Neuro: Nonfocal. Psych: Mood is okay. Affect is flat. Insight and judgment are poor. Total time spent discharging the patient was 45 minutes. /ROSIE Voice ID: [id number] Report ID: [id number] CHRITSIANA
== END 2018-10-11 19:27 | DRG 831 ==
LOC: ER 14:46 → ERHOLD 17:03 → 3RD-ICU 20:16
PROVIDERS: ADMIT Family Medicine; ATTEND Family Medicine
DX: O9A.211 Injury, poisoning and certain other consequences of external causes complicating pregnancy, first trimester (principal); G92 Toxic encephalopathy; T43.592A Poisoning by other antipsychotics and neuroleptics, intentional self-harm, initial encounter; O23.11 Infections of bladder in pregnancy, first trimester; Z3A.14 14 weeks gestation of pregnancy; Y92.019 Unspecified place in single-family (private) house as the place of occurrence of the external cause; E87.6 Hypokalemia
CPT/HCPCS: 36415; 51702; 76815; 80048; 80053; 80076; 80307; 80320; 80329; 81001; 81003; 81025; 83735; 84100; 84132; 85025; 85610; 85730; 87077; 87086; 87088; 87186; 93005; 96365; 96375; 99291; 99292; J0696; J2550; J3475; J7030